=== PATIENT | female | born 1955 | race Caucasian/White ===

== ENCOUNTER → 2016-11-23 | Outpatient (CLI) | payer OTHER ==
[~2016-11-23] VITALS: Ht 156.2 cm; Wt 80.3 kg
[~2016-11-23] MED LIST: ACTONEL150 MG PO; CATAPRES-TTS 21 EACH TD; CENTRUM COMPLE1 EACH PO; CHLORDIAZEPOXI1 EACH PO; CLARITIN,ALAVAR10 MG PO; CLONAZEPAM0.5 MG PO; CURCUMIN PO; DIOVAN HCT 31 TABLE1 PO; EXTRA STRENGTH500 M1 PO; FISH OIL300 MG PO; FLUOXETINE HCL20 MG PO; HYDROCHLOROTHIA25 MG PO; KLONOPIN1 MG PO; LO-DOSE ASPIRIN81 M1 PO; LUNESTA3 MG PO; MEGA BIOTIN10000 MCG PO; MELATONIN10 M1 PO; MELATONIN5 M3 PO; METOPROLOL TART25 MG PO; NIFEDICAL XL30 MG PO; NITROSTAT0.4 MG SL; OMEGA 3-6-9 PO; OSPHENA60 MG PO; PROZAC20 MG PO; TURMERIC500 M2 PO; ULTRAM50 MG PO; VITAMIN B-122500 MCG SL; VITAMIN D32000 UNI1 PO; VITAMIN D35000 UNIT PO; ZYRTEC10 M2 PO
[2016-11-23 10:55] LABS: POINT-OF-CARE METER ID UU14107333
== END | disposition home or self-care (01) ==
LOC: AMB 11-02 09:00 → OPR 11-02 10:30 → AMB 10:00
PROVIDERS: Internal Medicine
DX: Z12.11 Encounter for screening for malignant neoplasm of colon (principal); D12.2 Benign neoplasm of ascending colon; D12.3 Benign neoplasm of transverse colon; K62.1 Rectal polyp; Z86.010 Personal history of colon polyps; E11.22 Type 2 diabetes mellitus with diabetic chronic kidney disease; I12.9 Hypertensive chronic kidney disease with stage 1 through stage 4 chronic kidney disease, or unspecified chronic kidney disease; N18.2 Chronic kidney disease, stage 2 (mild); H81.09 Meniere's disease, unspecified ear; E78.5 Hyperlipidemia, unspecified; K58.9 Irritable bowel syndrome, unspecified; G47.30 Sleep apnea, unspecified; F32.9 Major depressive disorder, single episode, unspecified; Z87.440 Personal history of urinary (tract) infections; Z98.84 Bariatric surgery status; M54.12 Radiculopathy, cervical region; Z87.891 Personal history of nicotine dependence; Z82.49 Family history of ischemic heart disease and other diseases of the circulatory system; Z82.3 Family history of stroke; H91.90 Unspecified hearing loss, unspecified ear; Z88.5 Allergy status to narcotic agent; Z88.8 Allergy status to other drugs, medicaments and biological substances
CPT/HCPCS: 82948; 88305; J3010

== ENCOUNTER → 2017-03-22 | Outpatient (CLI) | payer OTHER ==
[~2017-03-22] VITALS: Ht 156.2 cm; Wt 68.0 kg
[~2017-03-22] MED LIST changes: +ALDACTONE25 MG PO; +FLONASE ALLERG9.9 ML BOTH NARES; +FLUOXETINE HCL60 MG PO; +TOPIRAMATE ER50 MG PO; +VASCEPA1 GM PO
== END | disposition home or self-care (01) ==
LOC: AMB 09:30
PROC: 0DJ08ZZ Inspection of Upper Intestinal Tract, Via Natural or Artificial Opening Endoscopic (ICD-10-PCS; principal; 2017-03-22)
DX: K25.9 Gastric ulcer, unspecified as acute or chronic, without hemorrhage or perforation (principal); Z98.84 Bariatric surgery status; E11.9 Type 2 diabetes mellitus without complications; E78.5 Hyperlipidemia, unspecified; I12.9 Hypertensive chronic kidney disease with stage 1 through stage 4 chronic kidney disease, or unspecified chronic kidney disease; N18.2 Chronic kidney disease, stage 2 (mild); K58.9 Irritable bowel syndrome, unspecified; F33.1 Major depressive disorder, recurrent, moderate; H81.09 Meniere's disease, unspecified ear; F42.9 Obsessive-compulsive disorder, unspecified; Z87.891 Personal history of nicotine dependence; Z79.82 Long term (current) use of aspirin; Z86.010 Personal history of colon polyps; Z88.5 Allergy status to narcotic agent; Z88.8 Allergy status to other drugs, medicaments and biological substances; Z82.49 Family history of ischemic heart disease and other diseases of the circulatory system; Z82.3 Family history of stroke
CPT/HCPCS: J2250; J2310; J3010

== ENCOUNTER → 2017-06-07 | Outpatient (CLI) | payer OTHER ==
[~2017-06-07] VITALS: Ht 156.8 cm; Wt 63.5 kg
[~2017-06-07] MED LIST changes: +CALCIUM CITRAT1 EA18 PO; +DIOVAN160 MG PO; +OMEPRAZOLE40 M1 PO; +PROZAC40 MG PO; +TOPROL XL50 MG PO
== END | disposition home or self-care (01) ==
LOC: AMB 09:00
PROC: 0DB68ZX Excision of Stomach, Via Natural or Artificial Opening Endoscopic, Diagnostic (ICD-10-PCS; principal; 2017-06-07)
DX: K28.9 Gastrojejunal ulcer, unspecified as acute or chronic, without hemorrhage or perforation (principal); Z98.84 Bariatric surgery status; E11.22 Type 2 diabetes mellitus with diabetic chronic kidney disease; I12.9 Hypertensive chronic kidney disease with stage 1 through stage 4 chronic kidney disease, or unspecified chronic kidney disease; N18.2 Chronic kidney disease, stage 2 (mild); Z79.82 Long term (current) use of aspirin; Z87.891 Personal history of nicotine dependence
CPT/HCPCS: 88305; 88342 TC; 93005; J7643